=== PATIENT | male | born 1935 | race Caucasian/White ===

== ENCOUNTER 2018-12-06 11:31 | Emergency (ER) | payer MEDICARE, OTHER ==
--- OUTSIDE RECORDS SUMMARY | 2018-12-06 11:38 | XMS REPORT | Continuity of Care Document ---
:1935 External Reference #:[id number] Author Name Kamilah Talavera Care Team Providers Name Role Phone Eddi Daugherty MD Primary Care Physician Unavailable Payers Type Date Identification Numbers Payment Provider Subscriber Effective: Policy Number: [id number] Medicare Prakash Rothman 2002 PayID: [id number] [address] [place] [address] Policy Number: [id number] [employer] Prakash Rothman PayID: [id number] [address] [place] [address] Expires: 2016 Policy Number: [id number] [employer] Britta Rothman Group Number: [id number] [address] PayID: [id number] [place] [address] Advance Directives Description No Information Available Problems Date Description Provider Status Onset: 12/12/[address] Eddy M.D. Active Onset: 12/12/[address] Edyd M.D. Active Onset: 12/12/[address] Eddy M.D. Active Onset: 12/12/[address] Eddy M.D. Active Onset: 07/09/2015 Sleep disorder Kyra Power MD Active Onset: 07/09/2015 Hypoxemia Kyra Power MD Active Onset: 08/14/2015 Obstructive sleep apnea syndrome Vira Clark DNP, RN, Active BUSINESS REPRESENTATIVE- Family History Date Family Member(s) Problem(s) Comments General non contributory Father Cancer, aneurysm at age 78 from lung cancer Mother at age 80 from heart attack Siblings 1 Siblings Sister no known medical diagnoses Paternal Grandfather due to DC () Paternal Uncles DC had CABG in late 50's or early 60's Social History Type Date Description Comments Sex Unknown Marital Status Lives With Occupation Retired computer numerical control operator Tobacco Use Start: Unknown Former cigarette smoker quite at age 40. End: Unknown ETOH Use Denies alcohol use Recreational Drug Use Denies Drug Use Tobacco Use Start: Unknown Patient is a former End: Unknown smoker Smoking Status Reviewed: 11/13/18 Patient is a former smoker Exercise Type/Frequency Exercises sporadically indoor bicycle that exercises arms, sporadically, about 2 times/week on average Allergies, Adverse Reactions, Alerts Date Description Reaction Status Severity Comments 12/31/2009 Nitroglycerin Active too much causes hypotension 02/25/2010 Metoprolol fatigue Active 12/19/2012 Atorvastatin cramps on lipitor Active 40mg/ tolerates 20 mg Medications Medication Date Status Form Strength Qnty SIG Indications Ordering Provider Lisinopril 01/05/ Active Tablets 2.5mg 45tab 1/[address] 2015 s every day Risa Eddy M.D. Magnesium Oxide 03/03/ Active Tablets 400mg 90tab [address] 2014 s every day Risa Eddy M.D. Multivitamins 04/29/ Active Capsules 30cap 1 capsule Other 2012 s harrison;y Ordering Provider Garlic 04/29/ Active Capsules 100mg 1 po qd Other 2012 Ordering Provider Atorvastatin 11/06/ Active Tablets 20mg 90tab [address] Calcium 2012 s every day Risa Eddy M.D. Allopurinol / Active Tablets 300mg 90tab 1 po qd Unknown 0000 s Ascorbic Acid / Active Tablets 500mg 1 po daily Unknown 0000 Asprin / Active 325mg 1 po daily Unknown 0000 Coenzyme Q-10 / Active Capsules 50mg 1 po bid Unknown 0000 Glucosamine MSM / Active Tablets 1 tab po bid Unknown Complex 0000 Nitrostat / Active Tablets 0.4mg 25tab one sl q5min Lane 0000 Sub s up to 3 F. doses as Surjit M.D. Selenium / Active Tablets 100mcg 1 po qd Unknown 0000 Vitamin B / Active Capsules 1 po twice Unknown Complex 0000 daily Vitamin D / Active 1000Units 1 po daily Unknown 0000 Metformin HCL / Active Tablets ER 500mg 30tab 1 po bid Unknown ER 0000 24HR s Tamsulosin HCL / Active Capsules 0.4mg 1 cap po Husseini, 0000 daily MD Jasper Finasteride / Active Tablets 5mg 1 tablet po Husseini, 0000 daily MD Jasper Tacrolimus / Active Ointment 0.1% bid as Unknown 0000 needed Cinnamon / Active Tablets 500mg 1 by mouth Unknown 0000 three times per day Nitro-Dur 03/25/ Hx Patches 0.1mg/HR 30uni [address] 2014 - 24HR ts every day on . 06/19/ in the in [id number] the morning, M.D. off in the at night - Patient Not Currently Using This Per DR Dukes Direction Protonix 03/25/ Hx Tablets DR 40mg 30tab [address] 2014 - s every day as . 08/15/ needed Surjit 2015 M.D. Atorvastatin 10/15/ Hx Tablets 40mg 100ta [address] Calcium 2012 - F. 11/06/ Surjit 2012 M.D. Lisinopril 02/25/ Hx Tablets 2.5mg 100ta [address] 2009 - bs every day F. 06/19/ Surjit 2014 M.D. Metoprolol 01/14/ Hx Tablets ER 25mg 1/[address] Succinate 2009 - 24HR till 01/21/10 F. 02/25/ then Surjit 2009 discontinue M.D. Metoprolol 12/31/ Hx Tablets ER 25mg 30tab [address] Succinate 2009 - 24HR s F. 01/14/ Surjit 2009 M.D. Lisinopril 12/31/ Hx Tablets 20mg 30tab 1/[address] 2009 F. 01/14/ Surjit 2009 Fernanda Minitran 12/31/ Hx Patches 0.1mg/HR 30uni on in am off Lane 2009 ts hs F. 01/14/ Surjit 2009 Fernanda Alpha-Terpineol / Hx Liquid 200Iu 1 po daily Unknown - 2015 Cod Liver Oil / Hx 100mg 1 po daily Unknown - 2011 Lisinopril / Hx Tablets 20mg 90tab 1 po qd Unknown 0000 - s 2009 Actos / Hx Tablets 15mg 90tab 1 po qd Unknown 0000 - s 2010 Simvastatin / Hx Tablets 40mg 90tab 1 po qhs Unknown 0000 - s 2012 Ferrous Sulfate / Hx Tablets 324mg 90tab 1 po bid Unknown 0000 - s 2009 Glumetza ER / Hx Tablets ER 1000mg daily Unknown 0000 - 24HR 2012 [place] 3 / Hx Capsules 1000mg 100ca 1 po qd. Unknown 0000 - ps 2013 Medications Administered in Office Medication Date Status Form Strength Qnty SIG Indications Ordering Provider Technetium TC Administered Injection Sundar Garza 99M 015 Fernanda Rojas, Per Unit Dose Up To [address] Mill[address]uries Technetium TC Administered Injection [address] Lord 99M 015 Tirso Eddy M.D. Per Unit Dose Up To 40 Millicuries Immunizations Description No Information Available Vital Signs Date Vital Result Comment 11/13/2018 11:46am Height 72 inches 6'0" Weight 254.25 lb with shoes Heart Rate 80 /min BP Systolic Sitting 150 mmHg right arm BP Diastolic Sitting 84 mmHg right arm BP Systolic Standing 156 mmHg right arm BP Diastolic Standing 86 mmHg right arm BP Systolic Lying Down 123 mmHg la repeat sitting BP Diastolic Lying Down 79 mmHg la repeat sitting BMI (Body Mass Index) 34.5 kg/m2 Ejection Fraction 47% 06/03/15 Cardiac Cath 08/08/2018 10:33am Height 72 inches 6'0" Weight 257.12 lb Heart Rate 52 /min BP Systolic Sitting 130 mmHg Rue large cuff BP Diastolic Sitting 62 mmHg Rue large cuff Respiratory Rate 16 /min O2 % BldC Oximetry 96 % On Ra BMI (Body Mass Index) 34.9 kg/m2 02/12/2018 1:38pm Height 72 inches 6'0" Weight 248.00 lb w/shoes Heart Rate 70 /min BP Systolic Sitting 140 mmHg LA lg cuff BP Diastolic Sitting 68 mmHg LA lg cuff BP Systolic Standing 118 mmHg la repeat sitting BP Diastolic Standing 62 mmHg la repeat sitting BMI (Body Mass Index) 33.6 kg/m2 Ejection Fraction 50-55% Echo 03/04/15 08/08/2017 10:31am Height 72 inches 6'0" Weight 237.38 lb Heart Rate 60 /min BP Systolic Sitting 138 mmHg Lue large cuff BP Diastolic Sitting 74 mmHg Lue large cuff Respiratory Rate 14 /min O2 % BldC Oximetry 98 % On Ra BMI (Body Mass Index) 32.2 kg/m2 07/06/2017 2:13pm Height 72 inches 6'0" Weight 233.25 lb with shoes Heart Rate 50 /min BP Systolic Sitting 130 mmHg LA reg cuff BP Diastolic Sitting 80 mmHg LA reg cuff BMI (Body Mass Index) 31.6 kg/m2 Ejection Fraction 50%-55% echo 03/04/15 08/16/2016 2:44pm Height 72 inches 6'0" Weight 254.75 lb with shoes Heart Rate 74 /min BP Systolic Sitting 130 mmHg LA lrg cuff BP Diastolic Sitting 68 mmHg LA lrg cuff BMI (Body Mass Index) 34.5 kg/m2 Ejection Fraction 50%-55% echo 03/04/16 08/09/2016 10:35am Height 72 inches 6'0" Weight 250.00 lb Heart Rate 77 /min BP Systolic Sitting 136 mmHg BP Diastolic Sitting 82 mmHg Respiratory Rate 16 /min O2 % BldC Oximetry 97 % BMI (Body Mass Index) 33.9 kg/m2 02/08/2016 10:39am Height 72 inches 6'0" Weight 259.00 lb w/shoes Heart Rate 76 /min BP Systolic Sitting 128 mmHg LA lg cuff BP Diastolic Sitting 74 mmHg LA lg cuff BMI (Body Mass Index) 35.1 kg/m2 Ejection Fraction 50-55% Echo 03/04/15 01/12/2016 1:13pm Height 72 inches 6'0" Weight 258.50 lb Heart Rate 75 /min BP Systolic 124 mmHg BP Diastolic 82 mmHg Respiratory Rate 14 /min O2 % BldC Oximetry 95 % BMI (Body Mass Index) 35.1 kg/m2 01/06/2016 1:48pm Height 72 inches 6'0" Weight 258.50 lb Heart Rate 80 /min BP Systolic Sitting 152 mmHg LA, reg BP Diastolic Sitting 86 mmHg LA, reg BP Systolic Recheck 138 mmHg la repeat sit BP Diastolic Recheck 82 mmHg la repeat sit BMI (Body Mass Index) 35.1 kg/m2 Ejection Fraction 50%-55% 03/04/15 09/29/2015 11:28am Height 72 inches 6'0" Weight 254.00 lb reported Heart Rate 76 /min BP Systolic 130 mmHg BP Diastolic 70 mmHg Respiratory Rate 14 /min O2 % BldC Oximetry 93 % BMI (Body Mass Index) 34.4 kg/m2 08/14/2015 11:17am Heart Rate 70 /min BP Systolic Sitting 134 mmHg BP Diastolic Sitting 72 mmHg Respiratory Rate 18 /min O2 % BldC Oximetry 98 % 07/10/2015 1:34pm Height 72 inches 6'0" Weight 254.00 lb no shoes Heart Rate 64 /min BP Systolic Sitting 132 mmHg LA, Lg cuff BP Diastolic Sitting 84 mmHg LA, Lg cuff BP Systolic Standing 132 mmHg LA BP Diastolic Standing 86 mmHg LA Respiratory Rate 16 /min BMI (Body Mass Index) 34.4 kg/m2 Ejection Fraction 50-55% 03/04/15 07/09/2015 11:01am Height 72 inches 6'0" Weight 257.38 lb Heart Rate 67 /min BP Systolic Sitting 134 mmHg BP Diastolic Sitting 74 mmHg Respiratory Rate 20 /min Body Temperature 98.3 F O2 % BldC Oximetry 98 % BMI (Body Mass Index) 34.9 kg/m2 Neck Circumference in inches 17.25 06/19/2015 2:25pm Height 70.5 inches 5'10.50" Weight 252.50 lb w/ shoes Heart Rate 80 /min BP Systolic Sitting 118 mmHg LA, reg BP Diastolic Sitting 74 mmHg LA, reg BMI (Body Mass Index) 35.7 kg/m2 Ejection Fraction 48% 03/18/15 Nem-rest 06/10/2015 1:42pm Height 70.5 inches 5'10.50" Weight 254.00 lb Heart Rate 72 /min 80 BP Systolic Sitting 114 mmHg left arm, large cuff BP Diastolic Sitting 82 mmHg left arm, large cuff BP Systolic Standing 94 mmHg left arm, large cuff BP Diastolic Standing 64 mmHg left arm, large cuff Respiratory Rate 16 /min BMI (Body Mass Index) 35.9 kg/m2 Ejection Fraction 50-55% 03/04/15 05/25/2015 2:43pm Height 70.5 inches 5'10.50" Weight 255.00 lb w/o shoes Heart Rate 68 /min BP Systolic Sitting 134 mmHg Rue, lg cuff BP Diastolic Sitting 70 mmHg Rue, lg cuff BP Systolic Standing 128 mmHg Rue BP Diastolic Standing 70 mmHg Rue Respiratory Rate 18 /min BMI (Body Mass Index) 36.1 kg/m2 Ejection Fraction 50-55% as of 03/04/15 echo 04/03/2015 10:12am Height 72 inches 6'0" Weight 255.00 lb with shoes Heart Rate 80 /min BP Systolic Sitting 118 mmHg LA, Lg cuff BP Diastolic Sitting 66 mmHg LA, Lg cuff BP Systolic Standing 110 mmHg LA BP Diastolic Standing 62 mmHg LA Respiratory Rate 16 /min BMI (Body Mass Index) 34.6 kg/m2 Ejection Fraction 50-55% 03/04/2015 02/25/2015 1:15pm Height 72 inches 6'0" Weight 253.31 lb with shoes Heart Rate 80 /min BP Systolic Sitting 130 mmHg Ra lg cuff BP Diastolic Sitting 70 mmHg Ra lg cuff BP Systolic Standing 124 mmHg Ra lg cuff BP Diastolic Standing 70 mmHg Ra lg cuff Respiratory Rate 17 /min BMI (Body Mass Index) 34.4 kg/m2 Ejection Fraction 50-55% date 01/25/10 02/27/2014 10:55am Height 72 inches 6'0" Weight 251.00 lb Heart Rate 80 /min BP Systolic Sitting 118 mmHg BP Diastolic Sitting 70 mmHg BMI (Body Mass Index) 34.0 kg/m2 04/29/2013 1:32pm Height 72 inches 6'0" Weight 258.00 lb Heart Rate 62 /min BP Systolic 120 mmHg BP Diastolic 76 mmHg BMI (Body Mass Index) 35.0 kg/m2 10/15/2012 1:57pm Height 72 inches 6'0" Weight 258.00 lb Heart Rate 72 /min BP Systolic Sitting 130 mmHg BP Diastolic Sitting 72 mmHg Respiratory Rate 20 /min BMI (Body Mass Index) 35.0 kg/m2 12/12/2011 1:58pm Height 72 inches 6'0" Weight 263.00 lb Heart Rate 65 /min BP Systolic 130 mmHg BP Diastolic 72 mmHg Respiratory Rate 16 /min BMI (Body Mass Index) 35.7 kg/m2 02/09/2011 10:17am Height 72 inches 6'0" Weight 257.75 lb Heart Rate 72 /min BP Systolic Sitting 118 mmHg l BP Diastolic Sitting 72 mmHg l BMI (Body Mass Index) 35.0 kg/m2 08/12/2010 2:51pm Height 72 inches 6'0" Weight 245.00 lb Heart Rate 73 /min BP Systolic Sitting 140 mmHg L BP Diastolic Sitting 80 mmHg L BMI (Body Mass Index) 33.2 kg/m2 02/25/2010 10:38am Height 72 inches 6'0" Weight 247.00 lb Heart Rate 85 /min BP Systolic Sitting 130 mmHg BP Diastolic Sitting 80 mmHg BMI (Body Mass Index) 33.5 kg/m2 01/14/2010 3:11pm Weight 254.00 lb Heart Rate 68 /min BP Systolic 110 mmHg BP Diastolic 64 mmHg BP Systolic Standing 100 mmHg BP Diastolic Standing 60 mmHg Respiratory Rate 16 /min 12/31/2009 10:15am Height 72 inches 6'0" Weight 267.00 lb Heart Rate 67 /min BP Systolic Sitting 120 mmHg left arm, right arm 124/70 BP Diastolic Sitting 70 mmHg left arm, right arm 124/70 BP Systolic Standing 110 mmHg BP Diastolic Standing 78 mmHg BMI (Body Mass Index) 36.2 kg/m2 Results Test Date Facility Test Result H/L Range Note Basic Metabolic 06/08/2015 [facility] Sodium 135 mmol/L N 133- 145 Panel [address] [place] [address] [phone] Potassium 4.2 mmol/L N 3.5-5.0 Chloride 102 mmol/L N 101-111 Co2 Carbon Dioxide 27 mmol/L N 22-32 Anion Gap 6 mmol/L N 2-11 Glucose 179 mg/dL High 70-100 Blood Urea Nitrogen 18 mg/dL N 6-24 Creatinine 0.92 mg/dL N 0.67-1.17 BUN/Creatinine Ratio 19.6 N 8-20 Calcium 9.5 mg/dL N 8.6-10.3 Egfr Non- 79.8 N >60 Egfr 102.6 N >60 1 Pre Cath 05/27/2015 [facility] Partial 33.3 seconds N 26.0- 36.[address] [address] PTT [phone] CBC Auto 05/27/2015 [facility] White Blood 6.3 10^3/uL N 4.8- 10.[address] [place] [address] [phone] Red Blood Count 4.77 10^6/uL N 4.0-5.4 Hemoglobin 15.2 g/dL N 14.0-18.0 Hematocrit 46 % N 42-52 Mean Corpuscular Volume 96 fL High 80-94 Mean Corpuscular Hemoglobin 32 pg High 27-31 Mean Corpuscular HGB Conc 33 g/dL N 31-36 Red Cell Distribution Width 13 % N 10.5-15 Platelet Count 212 10^3/uL N 150-450 Mean Platelet Volume 8 um3 N 7.4-10.4 Abs Neutrophils 3.5 10^3/uL N 1.5-7.7 Abs Lymphocytes 1.6 10^3/uL N 1.0-4.8 Abs Monocytes 0.4 10^3/uL N 0-0.8 Abs Eosinophils 0.6 10^3/uL N 0-0.6 Abs Basophils 0.1 10^3/uL N 0-0.2 Abs Nucleated RBC 0.01 10^3/uL N Granulocyte % 56.6 % N 38-83 Lymphocyte % 26.3 % N 25-47 Monocyte % 5.8 % N 1-9 Eosinophil % 10.0 % High 0-6 Basophil % 1.3 % N 0-2 Nucleated Red Blood Cells % 0.1 N Inr/Protime 05/27/2015 [facility] Inr 0.93 N 0.78-1.[address] [place], [place] [id number] [phone] Basic Metabolic 05/27/2015 [facility] Sodium 136 mmol/L N 133- [address] [place] [address] [phone] Potassium 4.4 mmol/L N 3.5-5.0 Chloride 103 mmol/L N 101-111 Co2 Carbon Dioxide 27 mmol/L N 22-32 Anion Gap 6 mmol/L N 2-11 Glucose 133 mg/dL High 70-100 Blood Urea Nitrogen 18 mg/dL N 6-24 Creatinine 0.90 mg/dL N 0.67-1.17 BUN/Creatinine Ratio 20.0 N 8-20 Calcium 9.5 mg/dL N 8.6-10.3 Egfr Non- 81.8 N >60 Egfr 105.2 N >60 2 Lipid Panel - 03/03/2015 [facility] Creatine 173 U/L N 10-223 [address] Kinase(CK) [place] [address] [phone] CBC Auto Diff 03/03/2015 [facility] White Blood Count 6.4 N 4.8-10.[address] 10^3/[place] [address] [phone] Red Blood Count 4.62 10^6/uL N 4.0-5.4 Hemoglobin 15.2 g/dL N 14.0-18.0 Hematocrit 44 % N 42-52 Mean Corpuscular Volume 96 fL High 80-94 Mean Corpuscular Hemoglobin 33 pg High 27-31 Mean Corpuscular HGB Conc 35 g/dL N 31-36 Red Cell Distribution Width 13 % N 10.5-15 Platelet Count 207 10^3/uL N 150-450 Mean Platelet Volume 9 um3 N 7.4-10.4 Abs Neutrophils 2.9 10^3/uL N 1.5-7.7 Abs Lymphocytes 2.0 10^3/uL N 1.0-4.8 Abs Monocytes 0.4 10^3/uL N 0-0.8 Abs Eosinophils 0.9 10^3/uL High 0-0.6 Abs Basophils 0 10^3/uL N 0-0.2 Abs Nucleated RBC 0 10^3/uL N Granulocyte % 46.2 % N 38-83 Lymphocyte % 31.7 % N 25-47 Monocyte % 7.0 % N 1-9 Eosinophil % 14.4 % High 0-6 Basophil % 0.7 % N 0-2 Nucleated Red Blood Cells % 0 N Comp Metabolic Panel 03/03/2015 [facility] Sodium 136 mmol/L N 133-[address] [place] [address] [phone] Potassium 4.4 mmol/L N 3.5-5.0 Chloride 104 mmol/L N 101-111 Co2 Carbon Dioxide 25 mmol/L N 22-32 Anion Gap 7 mmol/L N 2-11 Glucose 162 mg/dL High 70-100 Blood Urea Nitrogen 17 mg/dL N 6-24 Creatinine 0.98 mg/dL N 0.67-1.17 BUN/Creatinine Ratio 17.3 N 8-20 Calcium 9.6 mg/dL N 8.6-10.3 Total Protein 6.5 g/dL N 6.4-8.9 Albumin 4.2 g/dL N 3.2-5.2 Globulin 2.3 g/dL N 2-4 Albumin/Globulin Ratio 1.8 N 1-3 Total Bilirubin 0.60 mg/dL N 0.2-1.0 Alkaline Phosphatase 40 U/L N 34-104 Alt 34 U/L N 7-52 Ast 30 U/L N 13-39 Egfr Non- 74.2 N >60 Egfr 95.4 N >60 4 Lipid Profile 03/03/2015 [facility] Triglycerides 169 mg/dL N 5 (Trig/Chol/HDL) [address] [place] [address] [phone] Cholesterol 151 mg/dL N 6 HDL Cholesterol 35.4 mg/dL N 7 LDL Cholesterol 82 mg/dL N 8 Iron & Iron Binding 03/03/2015 [facility] Iron 113 g/dL N 50 -212 [address]acity [address] [place] [address] [phone] Unsaturated Iron Binding 208 g/dL N Total Iron Binding Capacity 321 g/dL N 250-450 % Iron Saturation 35 % N 15-55 Laboratory test 03/03/2015 [facility] Magnesium 1.7 mg/dL Low 1.9-2.7 9 finding [address] [place] [address] [phone] Protime 06/24/2010 [facility] Inr 1.62 High 0.82-1.17 10 [address] [place] [address] [phone] Protime 19.6 SEC High 10.2-14.8 11 Protime 06/21/2010 [facility] Inr 1.50 High 0.82-1.17 12 [address] [place] [address] [phone] Protime 18.1 SEC High 10.2-14.8 13 Protime 06/15/2010 [facility] Inr 1.45 High 0.82-1.17 14 [address] [place] [address] [phone] Protime 17.5 SEC High 10.2-14.8 15 BMP Basic Metabolic 03/25/2010 [facility] Sodium 138 mmol/L 135-145 Panel [address] [place] [address] [phone] Potassium 4.5 mmol/L 3.5-5.0 Chloride 108 mmol/L 101-111 Co2 (Carbon Dioxide) 25.9 mmol/L 22-32 Anion Gap 4.1 mmol/L 2-11 16 Glucose 121 mg/dL High 70-100 17 BUN 20 mg/dL 6-24 Creatinine 0.96 mg/dL 0.50-1.40 One Over Creatinine 1.00 BUN/Creatinine Ratio 20.8 High 8-20 Calcium 9.8 mg/dL 8.1-9.9 18 eGFR Non- 81.8 > 60 eGFR 99.0 > 60 19 Laboratory test 01/18/2010 [facility] CPK (Creatine 38 U/L 0- 200 20 finding [facility] [place]ase) [place] [address] [phone] TSH 0.57 MIU/ML 0.34-5.60 Lipid Panel 01/18/2010 [facility] Triglyceride 123 mg/dL 40- 200 [address] [place] [address] [phone] Cholesterol 112 mg/dL Less Than 200 21 High Density Lipoprotein 29 mg/dL Low 40-60 22 Cholesterol/HDL Ratio 3.86 AVERAGE 1-4.97 Low Density Lipoprotein 58 mg/dL Less Than 100 23 CMP Panel 01/18/2010 [facility] Sodium 136 mmol/L 135-145 [address] [place] [address] [phone] Potassium 4.4 mmol/L 3.5-5.0 Chloride 103 mmol/L 101-111 Co2 (Carbon Dioxide) 27.0 mmol/L 22-32 Anion Gap 6.0 mmol/L 2-11 24 Glucose 153 mg/dL High 70-100 25 BUN 20 mg/dL 6-24 Creatinine 0.84 mg/dL 0.50-1.40 One Over Creatinine 1.10 BUN/Creatinine Ratio 23.8 High 8-20 Calcium 9.1 mg/dL 8.1-9.9 26 Total Protein 6.5 GM/DL 6.2-8.1 Albumin 3.5 GM/DL 3.2-5.2 Globulin 3.0 GM/DL 2-4 Albumin/Globulin Ratio 1.2 1-3 Bilirubin Total 0.6 mg/dL 0.4-1.5 27 Alkaline Phosphatase 82 U/L 39-117 Alt (SGPT) 19 U/L 17-63 Ast (Sgot) 21 U/L 12-42 eGFR Non- 95.5 > 60 eGFR 115.5 > 60 28 CBC W/Electronic 01/18/2010 [facility] White Blood 6.8 CUMM 4.8-10.[address] [place] [address] [phone] Red Cell Count 3.68 CUMM Low 4.6-6.2 Hemoglobin 11.5 g/dL Low 14.0-18.0 Hematocrit 34 % Low 42-52 Mean Corpuscular Volume 93 um3 80-94 Mean Corpuscular Hemoglob 31 pg 27-31 Mean Corpuscular HGB Cone 34 g/dL 32-36 Redcell Distribution WDTH 16 % High 10.5-15 Platelet Count 571 CUMM High 150-450 Mean Platelet Volume 7.1 um3 Low 7.4-10.4 Gran % 69.0 % 38-83 Lymph % 18.6 % Low 25-47 Mononuclear % 5.6 % 1-9 Eosinophil % 6.4 % High 0-6 Basophil % 0.4 % 0-2 Abs Lymphs 1.3 1.0-4.8 Abs Mononuclear 0.4 0-0.8 Absolute Neutrophil Count 4.7 1.5-7.7 Abs Eosinophils 0.4 0-0.6 Abs Basophils 0 0-0.2 29 CBC With Manual 12/31/2009 [facility] White Blood 6.8 CUMM 4.8-10.[address] [place] [address] [phone] Red Cell Count 5.04 CUMM 4.6-6.2 Hemoglobin 16.3 g/dL 14.0-18.0 Hematocrit 47 % 42-52 Mean Corpuscular Volume 93 um3 80-94 Mean Corpuscular Hemoglob 32 pg High 27-31 Mean Corpuscular HGB Cone 35 g/dL 32-36 Redcell Distribution WDTH 13 % 10.5-15 Platelet Count 248 CUMM 150-450 Mean Platelet Volume 8.5 um3 7.4-10.4 Polysegmented Neutrophil 61 % 38-83 Lymphocyte 24 % Low 25-47 Monocyte 9 % 0-13 Eosenophil 6 % 0-6 Absolute Neutrophil Count 4.1 RBC Morphology NORMAL Cath Panel 12/31/2009 [facility] PTT (Aptt) 34.8 25.15-38.53 30 [address] [place] [address] [phone] Basic Metabolic 12/31/2009 [facility] Sodium 139 mmol/L 135- 145 Panel [address] [place] [address] [phone] Potassium 4.5 mmol/L 3.5-5.0 Chloride 105 mmol/L 101-111 Co2 (Carbon Dioxide) 26.0 mmol/L 22-32 Anion Gap 8.0 mmol/L 2-11 31 Glucose 87 mg/dL 70-100 32 BUN 23 mg/dL 6-24 Creatinine 1.00 mg/dL 0.50-1.40 One Over Creatinine 1.00 BUN/Creatinine Ratio 23.0 High 8-20 Calcium 10.2 mg/dL High 8.1-9.9 33 eGFR Non- 78.1 > 60 eGFR 94.5 > 60 34 Protime 12/31/2009 [facility] Inr 0.97 0.97-1.03 35 [address] [place] [address] [phone] Protime 11.4 SEC Low 11.5-12.2 36 1 Because ethnic data is not always readily available, this report includes an eGFR for both -Americans and non- Americans. The National Kidney Disease Education Program (NKDEP) does not endorse the use of the MDRD equation for patients that are not between the ages of 18 and 70, are , have extremes of body size, muscle mass, or nutritional status, or are non- or non-. According to the National Kidney Foundation, irrespective of diagnosis, the stage of the disease is based on the level of kidney function: Stage Description GFR(mL/min/1.73 m(2)) 1 Kidney damage with normal or decreased GFR 90 2 Kidney damage with mild decrease in GFR 60-89 3 Moderate decrease in GFR 30-59 4 Severe decrease in GFR 15-29 5 Kidney failure <15 (or dialysis) 2 Because ethnic data is not always readily available, this report includes an eGFR for both -Americans and non- Americans. The National Kidney Disease Education Program (NKDEP) does not endorse the use of the MDRD equation for patients that are not between the ages of 18 and 70, are , have extremes of body size, muscle mass, or nutritional status, or are non- or non-. According to the National Kidney Foundation, irrespective of diagnosis, the stage of the disease is based on the level of kidney function: Stage Description GFR(mL/min/1.73 m(2)) 1 Kidney damage with normal or decreased GFR 90 2 Kidney damage with mild decrease in GFR 60-89 3 Moderate decrease in GFR 30-59 4 Severe decrease in GFR 15-29 5 Kidney failure <15 (or dialysis) 3 fsting cc pmd 4 Because ethnic data is not always readily available, this report includes an eGFR for both -Americans and non- Americans. The National Kidney Disease Education Program (NKDEP) does not endorse the use of the MDRD equation for patients that are not between the ages of 18 and 70, are , have extremes of body size, muscle mass, or nutritional status, or are non- or non-. According to the National Kidney Foundation, irrespective of diagnosis, the stage of the disease is based on the level of kidney function: Stage Description GFR(mL/min/1.73 m(2)) 1 Kidney damage with normal or decreased GFR 90 2 Kidney damage with mild decrease in GFR 60-89 3 Moderate decrease in GFR 30-59 4 Severe decrease in GFR 15-29 5 Kidney failure <15 (or dialysis) 5 Desirable <150 Borderline high 150-199 High 200-499 Very High >500 6 Desirable <200 Borderline high 200-239 High >239 7 Low <40 Desirable: 40-60 High: >60 8 Desirable: <100 mg/dL Near Optimal: 100-129 mg/dL Borderline High: 130-159 mg/dL High: 160-189 mg/dL Very High: >189 mg/dL 9 fsting cc pmd 10 Recommended INR for Patients on Oral Anticoagulants Prophylaxis 2.0 - 3.0 Treatment of thrombosis 2.0 - 3.0 Prevention of embolism 2.0 - 3.0 Prevention of embolism from prosthetic heart valves 2.5 - 3.5 11 DIAGNOSIS,TREATMENT,AND THERAPY MUST BE BASED ON THE INR VALUE ALONE. 12 Recommended INR for Patients on Oral Anticoagulants Prophylaxis 2.0 - 3.0 Treatment of thrombosis 2.0 - 3.0 Prevention of embolism 2.0 - 3.0 Prevention of embolism from prosthetic heart valves 2.5 - 3.5 13 DIAGNOSIS,TREATMENT,AND THERAPY MUST BE BASED ON THE INR VALUE ALONE. 14 Recommended INR for Patients on Oral Anticoagulants Prophylaxis 2.0 - 3.0 Treatment of thrombosis 2.0 - 3.0 Prevention of embolism 2.0 - 3.0 Prevention of embolism from prosthetic heart valves 2.5 - 3.5 15 DIAGNOSIS,TREATMENT,AND THERAPY MUST BE BASED ON THE INR VALUE ALONE. 16 Anion gap measurement may be of limited value in the presence of any alkalosis, especially in a combined acid base disorder. . 17 Note change in reference range as of 05/29/08. The change was based on recommendations from the [employer] [place] [employer]. 18 Please note change in reference range effective 08 . 19 Because ethnic data is not always readily available, this report includes an eGFR for both -Americans and non- Americans. The National Kidney Disease Education Program (NKDEP) does not endorse the use of the MDRD equation for patients that are not between the ages of 18 and 70, are , have extremes of body size, muscle mass, or nutritional status, or are non- or non-. According to the National Kidney Foundation, irrespective of diagnosis, the stage of the disease is based on the level of kidney function: Stage Description GFR(mL/min/1.73 m(2)) 1 Kidney damage with normal or decreased GFR 90 2 Kidney damage with mild decrease in GFR 60-89 3 Moderate decrease in GFR 30-59 4 Severe decrease in GFR 15-29 5 Kidney failure <15 (or dialysis) 20 FASTING 21 CHOLESTEROL INTERPRETATION: Desirable: Less than 200 MG/DL Borderline-High Risk: 200-239 MG/DL High-Risk: 240 MG/DL and over 22 HDL INTERPRETATION: Undesirable: High Risk: Less than 40 MG/DL Desirable: Low Risk: Greater than 60 MG/DL 23 LDL INTERPRETATION: Low Risk Optimal Level: LDL Less than 100 MG/DL Near or Above Optimal: LDL 100-129 MG/DL Borderline High Risk: LDL 130-159 MG/DL High Risk: LDL 160-189 MG/DL Very High Risk: LDL Greater than 189 MG/DL 24 Anion gap measurement may be of limited value in the presence of any alkalosis, especially in a combined acid base disorder. . 25 Note change in reference range as of 05/29/08. The change was based on recommendations from the [employer] [place] [employer]. 26 Please note change in reference range effective 08 . 27 A metabolite of Naproxen, O-desmethylnaproxen, has been shown to interfere with the Jendrassik-Georges method for measuring total bilirubin. Samples from patients who have taken Naproxen have shown spurious elevation in total bilirubin levels. 28 Because ethnic data is not always readily available, this report includes an eGFR for both -Americans and non- Americans. The National Kidney Disease Education Program (NKDEP) does not endorse the use of the MDRD equation for patients that are not between the ages of 18 and 70, are , have extremes of body size, muscle mass, or nutritional status, or are non- or non-. According to the National Kidney Foundation, irrespective of diagnosis, the stage of the disease is based on the level of kidney function: Stage Description GFR(mL/min/1.73 m(2)) 1 Kidney damage with normal or decreased GFR 90 2 Kidney damage with mild decrease in GFR 60-89 3 Moderate decrease in GFR 30-59 4 Severe decrease in GFR 15-29 5 Kidney failure <15 (or dialysis) 29 Lymphopenia % 30 PLEASE NOTE NEW REFERENCE RANGE EFFECTIVE 09. 31 Anion gap measurement may be of limited value in the presence of any alkalosis, especially in a combined acid base disorder. . 32 Note change in reference range as of 05/29/08. The change was based on recommendations from the [employer] [place] [employer]. 33 Please note change in reference range effective 08 . 34 Because ethnic data is not always readily available, this report includes an eGFR for both -Americans and non- Americans. The National Kidney Disease Education Program (NKDEP) does not endorse the use of the MDRD equation for patients that are not between the ages of 18 and 70, are , have extremes of body size, muscle mass, or nutritional status, or are non- or non-. According to the National Kidney Foundation, irrespective of diagnosis, the stage of the disease is based on the level of kidney function: Stage Description GFR(mL/min/1.73 m(2)) 1 Kidney damage with normal or decreased GFR 90 2 Kidney damage with mild decrease in GFR 60-89 3 Moderate decrease in GFR 30-59 4 Severe decrease in GFR 15-29 5 Kidney failure <15 (or dialysis) 35 Recommended INR for Patients on Oral Anticoagulants Prophylaxis 2.0 - 3.0 Treatment of thrombosis 2.0 - 3.0 Prevention of embolism 2.0 - 3.0 Prevention of embolism from prosthetic heart valves 2.5 - 3.5 36 DIAGNOSIS,TREATMENT,AND THERAPY MUST BE BASED ON THE INR VALUE ALONE. Procedures Date Code Description Status 11/13/2018 83100 EKG Tracing & Interpretation Completed 02/12/2018 98828 EKG Tracing & Interpretation Completed 07/28/2017 74013 Holter Monitor Review (24 hr)dr review & interp only Completed 07/27/2017 82998 ECG Monitor/Recording W/Visual Superimposition Scanning Completed 07/06/2017 10537 EKG Tracing & Interpretation Completed 12/16/2016 56444 Polysomnography Sleep Staging 4+ Parameters W/Cpap Completed 08/16/2016 37123 EKG Tracing & Interpretation Completed 01/06/2016 61307 EKG Tracing & Interpretation Completed 07/29/2015 27488 Polysomnography Sleep Staging 4+ Parameters W/Cpap Completed 06/19/2015 87305 EKG Tracing & Interpretation Completed 06/03/2015 76441 Cardiac Cath,LT Hrtmincl Intraprocedural Ink LT Ventricul Completed Mammary 06/03/2015 16258 Cardiac Cath,LT Hrtmincl Intraprocedural Ink LT Ventricul Completed Mammary 05/25/2015 68145 EKG Tracing & Interpretation Completed 03/18/2015 40763 Treadmill Interp/Report Only Completed 03/18/2015 12499 Stress Test Supervsn W/Out I/R Completed 03/18/2015 88131 Stress Test Completed 03/18/2015 02419 Myocardial Perfusion Imaging Tomographic (Spect) Multiple Completed Studies 03/18/2015 24612 Myocardial Perfusion Imaging Tomographic (Spect) Multiple Completed Studies 03/13/2015 10352 Holter Monitoring 24 HR New Completed 03/04/2015 33660 ECHO Transthoracic, Real-Time 2D With Doppler And Color Completed Flow 02/25/2015 63090 EKG Tracing & Interpretation Completed 02/27/2014 87007 EKG Tracing & Interpretation Completed 04/29/2013 84845 EKG Tracing & Interpretation Completed 12/12/2011 09518 EKG Tracing & Interpretation Completed 02/09/2011 44072 EKG Tracing & Interpretation Completed 10/04/2010 90244 Rad Exam; Knee, Ap&L Completed 08/16/2010 12893 Xray Knee 3 Views Completed 08/16/2010 62657 Rad Exam; Knee, Ap&L Completed 08/12/2010 75537 EKG Tracing & Interpretation Completed 06/10/2010 18677 Open TX Of Tibial FX,Proximal Plateau;Unicondylar Incl Completed Fixation 06/10/2010 63334 Open TX Of Tibial FX,Proximal Plateau;Unicondylar Incl Completed Fixation 03/29/2010 22020 ECHO Stress Test Incl Perf Contiuous ekg Monitoring W/Phys Completed Superv 02/25/2010 60299 EKG Tracing & Interpretation Completed 01/25/2010 64306 ECHO Transthoracic, Real-Time 2D With Doppler And Color Completed Flow 01/14/2010 65382 EKG Tracing & Interpretation Completed 01/01/2010 95566 Selective Coronary Angioplasty Completed 01/01/2010 33394 S/I/R Inj Proc Vent And Or Atrial Completed 01/01/2010 52962 Coronary Angiography Completed 01/01/2010 66619 Inj Proc LFT Vent/LFT Atrl Angio Completed 01/01/2010 29680 Left Heart Catheterization Completed 12/31/2009 28147 EKG Tracing & Interpretation Completed Encounters Type Date Location Provider Dx Diagnosis Office Visit 08/08/2018 [facility] And Vira Clark, G47.33 Obstructive sleep 10:30a [facility] RN, BUSINESS REPRESENTATIVE-BC apnea (adult) Sorter Packer (pediatric) Z68.34 Body mass index (BMI) 34.0-34.9, adult Office Visit 02/12/2018 2:00p [facility] [address] Ferreira2 Dizziness and Fernanda Eddy giddiness E78.00 Pure hypercholesterolemia, unspecified I10 Essential (primary) hypertension I25.10 Athscl heart disease of [place] coronary artery w/o ang pctrs I49.3 Ventricular premature depolarization E66.9 Obesity, unspecified I49.5 Sick sinus syndrome Office Visit 01/18/2018 11:00a [facility] Juno Norton, L82.1 Other seborrheic MD keratosis D18.01 Hemangioma of skin and subcutaneous tissue 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 I83.11 Varicose veins of right lower extremity with inflammation Office Visit 08/08/2017 Pulmon[facility] And Vira G47.33 Obstructive sleep 10:45a [facility] Clark, MADELINE[facility] 07/[facility]/[address] [facility] [address] Lord E11.9 Type 2 diabetes 2:40p Fernanda Eddy mellitus without complications I10 Essential (primary) hypertension R42 Dizziness and giddiness G47.33 Obstructive sleep apnea (adult) (pediatric) I25.10 Athscl heart disease of [place] coronary artery w/o ang pctrs R00.1 Bradycardia, unspecified E66.9 Obesity, unspecified R94.31 Abnormal electrocardiogram [ECG] [EKG] Office Visit 01/17/2017 11:20a [facility] Juno Norton, L82.1 Other seborrheic MD keratosis L21.8 Other seborrheic dermatitis L85.3 Xerosis cutis I87.2 Venous insufficiency (chronic) (peripheral) Office Visit 08/16/2016 3:00p [facility] [address] Lord G47.33 Obstructive sleep Fernanda Eddy apnea (adult) (pediatric) I10 Essential (primary) hypertension E11.9 Type 2 diabetes mellitus without complications I25.10 Athscl heart disease of [place] coronary artery w/o ang pctrs Office Visit 08/09/2016 Pulmonology And Vira G47.33 Obstructive sleep 10:30a [facility] Clark RN, apnea (adult) [facility] (pediatric) Z87.891 Personal history of nicotine dependence J33.9 Nasal polyp, unspecified E66.01 Morbid (severe) obesity due to excess calories Z68.33 Body mass index (BMI) 33.0-33.9, adult Office Visit 02/08/2016 11:00a [facility] Dali Herrera, I10 Essential (primary) PA hypertension E66.01 Morbid (severe) obesity due to excess calories I25.810 Atherosclerosis of CABG w/o angina pectoris Office Visit 01/12/2016 Pulmonology And Vira G47.33 Obstructive sleep 1:15p [facility] Clark RN, apnea (adult) [facility] (pediatric) E66.01 Morbid (severe) obesity due to excess calories Office Visit 01/06/2016 1:40p [facility] Lord I1Marin Essential (primary) Fernanda Eddy hypertension G47.33 Obstructive sleep apnea (adult) (pediatric) E11.9 Type 2 diabetes mellitus without complications I25.810 Atherosclerosis of CABG w/o angina pectoris E66.9 Obesity, unspecified Office Visit 09/29/2015 Pulmonology And Vira G47.33 Obstructive sleep 11:30a [facility] Clark RN, apnea (adult) [facility] (pediatric) Office Visit 08/14/2015 Pulmonology And Vira G47.33 Obstructive sleep 11:15a [facility] Clark RN, apnea (adult) [facility] (pediatric) Office Visit 07/10/2015 [facility] CATHERINE Marroquin E11.9 Type 2 diabetes 2:00p Of Sorter Packer mellitus without complications F51.8 Oth sleep disord not due to a sub or known physiol cond I25.810 Atherosclerosis of CABG w/o angina pectoris E78.5 Hyperlipidemia, unspecified I10 Essential (primary) hypertension Office Visit 07/09/2015 11:00a Pulmonology And Kyra Power, F51.8 Oth sleep [facility] MD disord not due Sorter Packer to a sub or known physiol cond E66.01 Morbid (severe) obesity due to excess calories R09.02 Hypoxemia Office Visit 06/19/[address] Lord 414.01 Coronary 2:40p Cardiology Fernanda Eddy Atherosclerosis [place] 786.50 Pain Chest Unspec 401.1 Hypertension Benign 278.01 Obesity Morbid 307.49 Sleep Disorder Other Office Visit 06/10/2015 [place] [facility] Donohue 414.01 Coronary 2:00p Cardiology Of MD Roseline, Atherosclerosis Sorter Packer AT [facility] FACC, FSCAI [place] V45.81 Aortocoronary Bypass Postsurgical Status Office Visit 05/25/2015 3:00p [facility] Dali Herrera 401.1 Hypertension Benign Of Sorter Packer [place] 414.01 Coronary Atherosclerosis [place] 794.39 Cardiovascular Study Other Abnormal 786.50 Pain Chest Unspec 278.01 Obesity Morbid 414.02 Coronary Atherosclerosis Autologous Vein Bypass Graft 250.00 Diabetes Mellitus W/O Compl Type II Or Unspec Controlled 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 Benign 278.01 Obesity Morbid 272.4 Hyperlipidemia Other Unspec 250.00 Diabetes Mellitus W/O Compl Type II Or Unspec Controlled 414.01 Coronary Atherosclerosis [place] 786.59 Pain Chest Other 785.1 Palpitations 786.50 Pain Chest Unspec 307.49 Sleep Disorder Other Office Visit 02/27/2014 10:40a [facility] Lord 278.01 Obesity Morbid Fernanda Eddy 272.4 Hyperlipidemia Other Unspec 401.1 Hypertension Benign 414.01 Coronary Atherosclerosis [place] 250.00 Diabetes Mellitus W/O Compl Type II Or Unspec Controlled Office Visit 04/29/2013 2:00p [facility] Lord 250.00 Kristi Eddy M.D. Mellitus W/O Compl Type II Or Unspec Controlled 278.01 Obesity Morbid 272.4 Hyperlipidemia Other Unspec 401.1 Hypertension Benign Office Visit 10/15/2012 2:00p [facility] Lord 250.00 Kristi Eddy M.D. Mellitus W/O Compl Type II Or Unspec Controlled 414.01 Coronary Atherosclerosis [place] 278.01 Obesity Morbid Office Visit 12/12/2011 Gaetano Lord 414.01 Coronary 2:00p Cardiology JC Eddy M.D. Atherosclerosis [facility] [place] 250.00 Diabetes Mellitus W/O Compl Type II Or Unspec Controlled 272.4 Hyperlipidemia Other Unspec 278.01 Obesity Morbid Office Visit 04/04/2011 [facility], 823.00 FX Tibia Alone Upper 10:00a Services Of Fernanda Toro Closed C.M.A. Office Visit 02/09/2011 Gaetano Lord 414.01 Coronary 10:20a Ellie Eddy M.D. Atherosclerosis [place] 401.1 Hypertension Benign 250.00 Diabetes Mellitus W/O Compl Type II Or Unspec Controlled Office Visit 10/04/2010 [facility], 823.00 FX Tibia Alone Upper 11:00a Services Of Fernanda Toro Closed C.M.A. Office Visit 08/12/2010 Gaetano Lord 414.01 Coronary 3:00p Cardiology Fernanda Eddy Atherosclerosis [place] 401.1 Hypertension Benign 272.4 Hyperlipidemia Other Unspec 250.00 Diabetes Mellitus W/O Compl Type II Or Unspec Controlled Office Visit 06/09/2010 [facility], 823.00 FX Tibia Alone Upper 9:45a Services Of Fernanda Toro Closed C.M.A. Office Visit 03/29/2010 Gaetano Lord 414.01 Coronary 10:30a Ellie Eddy M.D. Atherosclerosis [place] 250.00 Diabetes Mellitus W/O Compl Type II Or Unspec Controlled 401.1 Hypertension Benign Office Visit 02/25/2010 Gaetano Lord 414.01 Coronary 10:40a Ellie Eddy M.D. 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 Atherosclerosis [place] 401.1 Hypertension Benign Office Visit 12/31/2009 Gaetano Lord 414.01 Coronary 10:20a Cardiology Fernanda Eddy Atherosclerosis [place] 401.1 Hypertension Benign 786.51 Pain Precordial Plan of Treatment Future Appointment(s):08/09/2019 11:15 am - Vira Clark DNP, RN, BUSINESS REPRESENTATIVE-BC at [facility]01/21/2019 11:00 am - Juno Norton MD at [facility] [id number]/05/2019 - Lane F. Mauser, M.D.E78.00 Pure hypercholesterolemia, [id number] Essential (primary) ecemtcowioraN79.10 Atherosclerotic heart disease of [place] coronary artery withI49.3 Ventricular premature vmswqqseihroowQ21.1 Bradycardia, unspecifiedFollow up:ov 1 yearE66.9 Obesity, unspecifiedRecommendations:reduce weight regular moderate exercise
--- NOTE | 2018-12-06 12:26 | UC ---
General HPI - HPI Summary HPI Summary: Pt presents to with and daughter. pt with med history significant for CAD with bypass, DM, HTN. Pt states after waking this morning felt weak dizziness, nausea and 3 episodes of vomiting - no bilious, no blood. Pt denies cp, sob. Pt denies diarrhea. No fever, chills. No attempt at po. Pt called his stave grader - worried about heart - no call back so came here. Pt' did not take mornig meds. Pt's took his vs and his HR was 52 at home . Med list reviewed - History of Current Complaint Chief Complaint: UCDizziness Stated Complaint: NAUSEA, VOMITTING, LOW PULSE RATE Time Seen by Provider: 12/06/18 12:10 Hx Obtained From: Patient Onset/Duration: Gradual Onset Timing: Intermittent Episodes Lasting: Pain Intensity: 0 - Allergy/Home Medications Allergies/Adverse Reactions: Allergies Allergy/AdvReac Type Severity Reaction Status Date / Time atorvastatin Allergy Unknown Verified 12/06/18 11:59 Reaction Details metoprolol Allergy Unknown Verified 12/06/18 11:59 Reaction Details nitroglycerin Allergy See Comment Verified 12/06/18 11:59 PMH/Surg Hx/FS Hx/Imm Hx Endocrine History: Diabetes, Dyslipidemia Cardiovascular History: Cardiac Disease, Hypertension - Surgical History Surgical History: Yes Surgery Procedure, Year, and Place: cardiac catheterization. spinal cyst removal. right knee surgery - Social History Alcohol Use: None Substance Use Type: None Smoking Status (MU): Former Smoker Review of Systems All Other Systems Reviewed And Are Negative: Yes Constitutional: Positive: Fatigue Gastrointestinal: Positive: Vomiting, Nausea Neurological: Positive: Weakness Physical Exam - Summary Physical Exam Summary: Vital Signs Reviewed: Yes A+Ox3, pale, tired appearing Eyes: Conjunctiva Clear, KEYON. EOM intact and full ENT: Hearing grossly normal TM x 2 clear, mmoist, uvula midline, no exudate, no erythema Neck: Positive: Supple Respiratory: Positive: No respiratory distress, No accessory muscle use + CTA throughout no w/r Cardiovascular: RRR nl s1, s2 no m/r CBT <2 sec abd soft + BS nt/nd no guarding, no distension Musculoskeletal Exam: ABBASI x 4 without difficulty Strength Intact, ROM Intact Neurological: Positive: Alert, + sensation throughout Psychological: Positive: Normal Response To Family Skin: Positive: no rash, no ecchymosis, pallor Triage Information Reviewed: Yes Vital Signs: Initial Vital Signs Temp 97 F 12/06/18 11:42 Pulse 78 12/06/18 11:42 Resp 20 12/06/18 11:42 BP 135/59 12/06/18 11:42 Pulse Ox 92 12/06/18 11:42 Diagnostics - EKG Cardiac Rate: NL Cardiac Rhythm: Sinus: Normal Ectopy: PVCs ST Segment: Non-Specific - inverted, depresed T wave V2, V3 Course/Dx - Course Course Of Treatment: Pt presents to UC with weakness, dizziness, nausea and 3 episodes of emesis at home. Per report HR 52 at home. At , pt with elevated FSBG. Pt pallor. recommed pt to ED for eval. will place IV, monitor. report to Dr. Miller in eD - Diagnoses Provider Diagnosis: Vomiting, Weakness Discharge - Sign-Out/Discharge Documenting (check all that apply): Patient Departure Signing out patient TO: Kilo Miller - 12:20 All imaging exams completed and their final reports reviewed: No - Discharge Plan Condition: Good Disposition: TRANS HIGHER LVL OF CARE FAC Referrals: Eddi Daugherty MD [Primary Care Provider] - - Billing Disposition and Condition Condition: GOOD Disposition: Trans Higher Lvl of Care Fac
[2018-12-06] MEDS ORDERED: NS 0.9% 1000 ML** 1,000 ML IV SCH (12:30)
[2018-12-06 12:56] VITALS: BP 134/54
== END 2018-12-06 12:53 | disposition short-term general hospital (02) ==
LOC: UCEAST 11:31
DX: R11.2 Nausea with vomiting, unspecified (principal); R53.1 Weakness; E11.9 Type 2 diabetes mellitus without complications; I10 Essential (primary) hypertension; R42 Dizziness and giddiness; Z88.8 Allergy status to other drugs, medicaments and biological substances; Z87.891 Personal history of nicotine dependence; Z86.79 Personal history of other diseases of the circulatory system; Z95.1 Presence of aortocoronary bypass graft
CPT/HCPCS: 96361; 99213; G0463

== ENCOUNTER 2018-12-06 13:06 | Observation (INO) | payer MEDICARE, OTHER ==
--- NOTE | 2018-12-06 13:35 | ED ---
Dizziness - HPI Summary HPI Summary: Pt is an 83 y/o male brought in by EMS who presents to the ED c/o dizziness. He was sent here by Dr. Xiong at the , where his blood sugar was found to be 320 and an EKG revealed Q wave inversions in leads V2-V3. At 6:00 this morning after urinating he suddenly had near-syncope, room-spinning dizziness, diaphoresis, and nausea. Pt also c/o generalized weakness, difficulty ambulating , lightheadedness, and vomiting. Pt denies any fever, chills, erythema of eyes, sore throat, CP, SOB, cough, abdominal pain, dysuria, hematuria, myalgia, edema , rash. As per his HR was 52 bpm at home. She also notes that a blood sugar above 300 is very abnormal for him. Pt is coming off a chest cold and still has a cough, but denies any recent sinus or ear infections. PMHx CAD, HTN , DM. - History Of Current Complaint Chief Complaint: EDWeakness Stated Complaint: NAUSEA/VOMITING/DIZZINESS Time Seen by Provider: 12/06/18 13:15 Hx Obtained From: Patient, Family/Leather Crafter - Onset/Duration: Still Present Timing: Hours - This morning at 6:00 Character: Room Spinning, Lightheaded Aggravating Factor(s): Other - urinating Alleviating Factor(s): Nothing Associated Signs And Symptoms: Positive: Nausea, Vomiting. Negative: Chest Pain , SOB, Fever, Chills - Allergies/Home Medications Allergies/Adverse Reactions: Allergies Allergy/AdvReac Type Severity Reaction Status Date / Time atorvastatin Allergy Unknown Verified 12/06/18 11:59 Reaction Details metoprolol Allergy Unknown Verified 12/06/18 11:59 Reaction Details nitroglycerin Allergy See Comment Verified 12/06/18 11:59 Home Medications: Home Medications Allopurinol [Zyloprim 300 MG TAB] 300 mg PO DAILY 12/06/18 [History Confirmed ] Aspirin TAB* [Aspirin 325 MG TAB*] 325 mg PO DAILY 12/06/18 [History Confirmed 12/06/18] Atorvastatin Calcium [Lipitor] 20 mg PO DAILY 12/06/18 [History Confirmed ] Finasteride TAB* [Proscar TAB*] 5 mg PO DAILY 12/06/18 [History Confirmed ] Lisinopril [Lisinopril 2.5 MG-] 1.25 mg PO DAILY 12/06/18 [History Confirmed ] Metformin HCl [Metformin HCl ER] 500 mg PO BID 12/06/18 [History Confirmed 12/06] Nitroglycerin 0.4 mg SL DAILY PRN 12/06/18 [History Confirmed 12/06/18] Tamsulosin HCl 0.4 mg PO DAILY 12/06/18 [History Confirmed 12/06/18] Ubidecarenone [Coenzyme Q-10] 50 mg PO BID 12/06/18 [History Confirmed 12/06/18] PMH/Surg Hx/FS Hx/Imm Hx Endocrine/Hematology History: Reports: Hx Diabetes - type 2 Cardiovascular History: Reports: Hx Coronary Artery Disease, Hx Hypertension GI History: Reports: Hx Diverticulosis - diverticulitis, Hx Gastroesophageal Reflux Disease History: Reports: Hx Kidney Stones Musculoskeletal History: Reports: Hx Gout - Surgical History Surgery Procedure, Year, and Place: cardiac catheterization. spinal cyst removal. right knee surgery. CABG Infectious Disease History: No Infectious Disease History: Denies: Traveled Outside the [place] in Last 30 Days - Family History Known Family History: Positive: Cardiac Disease - [place], Diabetes, Other - colon and lung CA - Social History Alcohol Use: None Hx Substance Use: No Substance Use Type: Reports: None Hx Tobacco Use: Yes Smoking Status (MU): Former Smoker Review of Systems Positive: Skin Diaphoresis. Negative: Fever, Chills Negative: Erythema Negative: Sore Throat Negative: Chest Pain Positive: Cough. Negative: Shortness Of Breath Positive: Vomiting, Nausea. Negative: Abdominal Pain Negative: dysuria, hematuria Negative: Myalgia, Edema Positive: Rash Neurological: Other - lightheadedness, room-spinning dizziness Positive: Weakness - generalized, difficulty ambulating, Syncope - near All Other Systems Reviewed And Are Negative: Yes Physical Exam - Summary Physical Exam Summary: Constitutional: Well-developed, Well-nourished, Alert. (-) Distressed Skin: Warm, Dry HENT: Normocephalic; Atraumatic, Scarred left TM, (-) Ari-Hallpike, (-) Supine roll Eyes: Conjunctiva normal Neck: Musculoskeletal ROM normal neck. (-) JVD, (-) Stridor, (-) Tracheal deviation Cardio: Rhythm regular, rate normal, Heart sounds normal; Intact distal pulses; The pedal pulses are 2+ and symmetric. Radial pulses are 2+ and symmetric. (-) Murmur Pulmonary/Chest wall: Effort normal. (-) Respiratory distress, (-) Wheezes, (-) Rales Abd: Soft. (-) Tenderness, (-) Distension, (-) Guarding, (-) Rebound Musculoskeletal: (-) Edema Lymph: (-) Cervical adenopathy Neuro: Alert, Oriented x3, Strength normal, Cranial nerves II-XII are grossly intact. (-) Dysmetria, (-) Nystagmus, (-) Ataxia by finger to nose testing, (-) Sensory deficit. Psych: Mood and affect Normal Triage Information Reviewed: Yes Vital Signs On Initial Exam: Initial Vitals Pulse Resp Pulse Ox 74 14 92 12/06/18 13:10 12/06/18 13:10 12/06/18 13:10 Vital Signs Reviewed: Yes Diagnostics - Vital Signs Vital Signs Temp Pulse Resp BP Pulse Ox 12/06/18 13:12 76 16 164/77 94 12/06/18 13:11 97.4 F 76 16 150/81 94 12/06/18 13:10 74 14 92 - Laboratory Result Diagrams: 12/06/18 13:30 12/06/18 13:30 Lab Statement: Any lab studies that have been ordered have been reviewed, and results considered in the medical decision making process. - Radiology CXR Radiology Interpretation Completed By: ED Physician Summary of Radiographic Findings: Right lower lobe infiltrate and right pleural effusion. Pending official radiology report. - EKG 13:12 Cardiac Rate: NL - 75 bpm EKG Rhythm: Sinus Rhythm Summary of EKG Findings: T wave inversions in leads V2-V3. No STEMI. Dizzy Course/Dx - Course Course Of Treatment: Pt is an 83 y/o male brought in by EMS who presents to the ED c/o near-syncope, room-spinning dizziness, diaphoresis, N/V, generalized weakness, difficulty ambulating, and lightheadedness. He was sent here by Dr. Xiong at the . Pt appears somewhat SOB. He has had a cough for 2 weeks with abnormal lungs sounds on the right side. A CXR revealed right lower lobe infiltrate and right pleural effusion. An EKG revealed T wave inversion in leads V2-V3. Given his cough, lung sounds, and lactic acid consider PNA. Pt is admitted to Dr. Waldron with final dx of sepsis, PNA, and pleural effusion. 35 minutes of CCT. He is agreeable with this plan. - Diagnoses Provider Diagnoses: Sepsis, Pneumonia, Pleural effusion - Provider Notifications Discussed Care Of Patient With: Etelvina Waldron Time Discussed With Above Provider: 15:00 Instructed by Provider To: Admit As Inpatient - Critical Care Time Critical Care Time: 30-74 min - 35 minutes - CCT is exlusive from separately billable procedures. Discharge - Sign-Out/Discharge Documenting (check all that apply): Patient Departure - Admit Patient Received Moderate/Deep Sedation with Procedure: No - Discharge Plan Condition: Stable Disposition: ADMITTED TO [facility] - Billing Disposition and Condition Condition: STABLE Disposition: Admitted to [facility] - Attestation Statements Document Initiated by Scribe: Yes Documenting Scribe: Linda Lehman Provider For Whom Scribe is Documenting (Include Credential): Kilo Miller MD Scribe Attestation: Linda Pinon, scribed for Kilo Miller MD on 12/06/18 at 2140. Scribe Documentation Reviewed: Yes Provider Attestation: The documentation as recorded by the tanyaibLinda castro accurately reflects the service I personally performed and the decisions made by Kilo alexander MD Status of Scribe Document: Viewed
[2018-12-06 13:44] LABS: ABS Basophils 0 10^3/ul (0-0.2); ABS Eosinophils 0 10^3/ul (0-0.6); ABS Lymphocytes 0.5 10^3/ul (1.0-4.8); ABS Monocytes 0.2 10^3/ul (0-0.8); ABS Neutrophils 7.3 10^3/ul (1.5-7.7); ABS Nucleated RBC 0 10^3/ul; Eosinophil % 0.2 %; Hematocrit 45 % (42-52); Hemoglobin 15.5 g/dl (14.0-18.0); Lymphocyte % 6.6 %; Mean Corpuscular HGB Conc 34 g/dl (31-36); Mean Corpuscular Hemoglobin 33 pg (27-31); Mean Corpuscular Volume 97 fL (80-94); Mean Platelet Volume 8.3 fL (7.4-10.4); Nucleated Red Blood Cells % 0.1; Platelet Count 192 10^3/ul (150-450); Red Blood Count 4.69 10^6/ul (4.00-5.40); Red Cell Distribution Width 13 % (10.5-15)
[2018-12-06 14:03] LABS: Albumin 4.3 g/dL (3.2-5.2); Albumin/Globulin Ratio 1.4 (1-3); BUN/Creatinine Ratio 22.4 (8-20); Calcium 9.4 mg/dL (8.6-10.3); EGFR African American 104.7 (>60); EGFR Non-African American 86.5 (>60); Potassium 4.8 mmol/L (3.5-5.0); Total Bilirubin 0.4 mg/dL (0.2-1.0); Total Protein 7.3 g/dL (6.4-8.9)
[2018-12-06] MEDS ORDERED: NS 0.9% IV ONE (14:30)
[2018-12-06 14:56] LABS: C Reactive Protein 1.59 mg/L (<8.01)
[2018-12-06] MEDS ORDERED: Acetaminophen TAB* 325 MG PO PRN (16:31)
[2018-12-06] MEDS ORDERED: Dextrose 50% Syringe 50 ML* 25 GM/50 ML SYRINGE IV PUSH PRN (16:34)
[2018-12-06] MEDS ORDERED: NS 0.9% 1000 ML** 1,000 ML IV SCH (16:45)
[2018-12-06 16:47] LABS: Urine Appearance Clear; Urine Bilirubin Negative (Negative); Urine Blood Negative (Negative); Urine Color Yellow; Urine Glucose 3+(>=500 mg/dL) (Negative); Urine Ketones 1+ (Negative); Urine Nitrite Negative (Negative); Urine Protein Negative (Negative); Urine Specific Gravity 1.024 (1.010-1.030); Urine Urobilinogen Negative (Negative)
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
[2018-12-06] MEDS: Insulin LISPRO* 1 UNITS UNIT SUBCUT SCH (21:58)
[2018-12-06] MEDS: Heparin VIAL(*) 5000 UNITS/ML VIAL (FIVE THOUSAND) SUBCUT SCH (21:58)
[2018-12-07 06:52] LABS: ABS Basophils 0 10^3/ul (0-0.2); ABS Eosinophils 0.3 10^3/ul (0-0.6); ABS Lymphocytes 1.6 10^3/ul (1.0-4.8); ABS Monocytes 0.5 10^3/ul (0-0.8); ABS Neutrophils 4.2 10^3/ul (1.5-7.7); ABS Nucleated RBC 0 10^3/ul; Eosinophil % 3.9 %; Hematocrit 36 % (42-52); Hemoglobin 13.1 g/dl (14.0-18.0); Lymphocyte % 23.8 %; Mean Corpuscular HGB Conc 37 g/dl (31-36); Mean Corpuscular Hemoglobin 38 pg (27-31); Mean Corpuscular Volume 103 fL (80-94); Mean Platelet Volume 8.6 fL (7.4-10.4); Nucleated Red Blood Cells % 0; Platelet Count 181 10^3/ul (150-450); Red Blood Count 3.46 10^6/ul (4.00-5.40); Red Cell Distribution Width 13 % (10.5-15); White Blood Count 6.6 10^3/ul (3.5-10.8)
[2018-12-07 07:00] LABS: BUN/Creatinine Ratio 21.2 (8-20); Calcium 8.2 mg/dL (8.6-10.3); EGFR African American 140.2 (>60); EGFR Non-African American 115.8 (>60)
[2018-12-07] MEDS: Heparin VIAL(*) 5000 UNITS/ML VIAL (FIVE THOUSAND) SUBCUT SCH ×2 (07:24→12:59)
[2018-12-07] MEDS: Insulin LISPRO* 1 UNITS UNIT SUBCUT SCH ×3 (08:45→17:36)
[2018-12-07] MEDS ORDERED: Finasteride TAB* 5 MG PO SCH (09:00)
[2018-12-07] MEDS ORDERED: Allopurinol TAB* 300 MG PO SCH (09:00)
[2018-12-07] MEDS ORDERED: Tamsulosin CAP* 0.4 MG PO SCH (09:00)
[2018-12-07] MEDS ORDERED: Aspirin TAB* 325 MG PO SCH (09:00)
[2018-12-07 17:12] VITALS: BP 127/55
--- NOTE | 2018-12-07 22:18 | DS ---
CC: Dr. Daugherty; Dr. Eddy * DISCHARGE SUMMARY: DATE OF ADMISSION: 12/06/18 DATE OF DISCHARGE: 12/07/18 PRIMARY CARE PROVIDER: Dr. Daugherty. POPULATION GENETICIST: Dr. Eddy. DISCHARGE DIAGNOSES: An episode of nausea, vomiting, and vertigo, and unsteady gait. The nausea and vomiting as well as vertigo resolved by the time of discharge. The unsteady gait is improving by the time of discharge. The differential includes either viral gastroenteritis versus vertiginous syndrome. SECONDARY DIAGNOSES: 1. Mild dehydration. 2. History of coronary artery disease, status post coronary artery bypass grafting. 3. Hypertension. 4. Diabetes mellitus, type 2, [id number]. 5. Obesity. 6. Obstructive sleep apnea, on BiPAP. 7. Benign prostatic hypertrophy. 8. History of knee fracture in 2009. 9. History of nephrolithiasis. 10. Dyslipidemia. MEDICATIONS AT DISCHARGE: Include: 1. Allopurinol 300 mg daily. 2. Aspirin 325 mg daily. 3. Lipitor 20 mg daily. 4. Proscar 5 mg daily. 5. Lisinopril 1.25 mg daily. 6. Metformin 500 mg b.i.d. 7. Nitroglycerin on a p.r.n. basis. 8. Tamsulosin 0.4 mg daily. 9. Coenzyme Q10 50 mg b.i.d. LABORATORY DATA OBTAINED DURING THE HOSPITAL STAY: Included: On 12/07/18, white blood cell count of 6.6, hemoglobin of 13.1, hematocrit of 36, MCV of 103 , and platelets of 181. D-dimer below 200. Sodium 137, potassium 4.0, chloride 108, carbon dioxide 23, BUN 14, creatinine 0.66. TSH 1.02. MRI of the brain obtained on 12/07/18, impression: "There are multiple foci of elevated T2/FLAIR signal within the periventricular and subcortical white matter. While these findings are nonspecific, they can be seen associated with migraine headache as the sequelae of previous infection or inflammation and chronic small vessel ischemia. Demyelinating disease is also within the differential, but is considered less likely in the absence of appropriate clinical presentation. No restricted diffusion to suggest acute infarct." HOSPITALIZATION COURSE: Prakash Rothman is an 83-year-old male with history of diabetes and hypertension as well as heart disease, who presented to the hospital with sudden onset of nausea, vomiting, and dizziness. The patient stated that he vomited several times. When he presented to the hospital, he appeared dehydrated. His vomiting by that time resolved. It also was mentioned that the patient has low heart rate when he was vomiting, but that initially was not the problem noted in the emergency department. The patient was placed on overnight observation with a working diagnosis of likely viral gastroenteritis. On the morning of 12/07/18, the patient was able to eat regular diet and he no longer had nausea. His heart rate still oscillated between 39 and 60. It appears that the patient continued to have unsteady gait and that was not directly related to the patient's heart rate. His dizziness resolved by the time of discharge. The patient ambulated safely with a roller walker. He underwent physical therapy evaluation, which recommended roller walker and possibility of further hospital stay for another day for physical therapy. Due to the patient's continuation of unsteady gait, an MRI of the brain was obtained to rule out posterior circulation stroke. The MRI was negative for acute infarct. Furthermore, the patient was observed on telemetry monitored bed for the remaining several hours of his hospital stay with heart rate in the 60s. By the time of discharge, the patient was offered to stay for yet another night to evaluate on telemetry monitored bed and observe for bradycardia. Of note, the patient has history of bradycardia as per Dr. Eddy' s note from outpatient visits. The patient felt well and he felt that he has had intermittently unsteady gait while at home and he already owns a walker. He wishes to go home and to follow up with his primary care provider. At this point, the differential includes either viral gastroenteritis or may be benign vertiginous syndrome that was the cause of the patient's presentation. The patient is advised to ambulate with a roller walker at discharge. The patient's medications at discharge are unchanged. He is recommended to follow up with Dr. Daugherty in approximately 4 to [address] Eddy in approximately 1 month. Please note that this is a short summary of the patient's hospitalization. Please refer to further medical records for details. [id number]/[facility] #: [id number] [facility]
== END 2018-12-07 18:45 | disposition home or self-care (01) ==
LOC: ED 13:06 → MED 16:31
PROVIDERS: ADMIT Internal Medicine; ATTEND Internal Medicine
DX: E86.0 Dehydration (principal); I25.10 Atherosclerotic heart disease of native coronary artery without angina pectoris; I10 Essential (primary) hypertension; R11.2 Nausea with vomiting, unspecified; R42 Dizziness and giddiness; Z95.5 Presence of coronary angioplasty implant and graft; E11.9 Type 2 diabetes mellitus without complications; E66.9 Obesity, unspecified; G47.33 Obstructive sleep apnea (adult) (pediatric); N40.0 Benign prostatic hyperplasia without lower urinary tract symptoms; N20.0 Calculus of kidney; E78.5 Hyperlipidemia, unspecified; Z79.82 Long term (current) use of aspirin; R53.1 Weakness; Z88.8 Allergy status to other drugs, medicaments and biological substances; Z87.891 Personal history of nicotine dependence; Z86.79 Personal history of other diseases of the circulatory system; Z95.1 Presence of aortocoronary bypass graft
CPT/HCPCS: 36415; 70551; 71045; 80048; 80053; 81003; 83605; 83880; 84443; 84484; 85025; 85379; 86140; 87040; 93005; 94660; 96372; 99285; A9270-GY; G0378; G8978-GP-CJ; G8979-GP-CH; J1644